=== PATIENT | male | born 1935 | race Caucasian/White ===

== ENCOUNTER 2019-12-21 05:28 | Day surgery (SDC) | payer MEDICARE, OTHER ==
--- NOTE | 2019-12-16 11:27 | RADIOLOGY REPORT (SQ) ---
EXAM DESCRIPTION: CHEST PA/LATERAL IMAGES COMPLETED DATE/TIME: 12/16/2019 10:48 am REASON FOR STUDY: PRE-OP COMPARISON: None. EXAM PARAMETERS: NUMBER OF VIEWS: two views TECHNIQUE: Digital Frontal and Lateral radiographic views of the chest acquired. RADIATION DOSE: NA LIMITATIONS: none FINDINGS: LUNGS AND PLEURA: No opacities, masses or pneumothorax. No pleural effusion. MEDIASTINUM AND HILAR STRUCTURES: No masses or contour abnormalities. HEART AND VASCULAR STRUCTURES: Heart normal size. No evidence for failure. BONES: No acute findings. HARDWARE: None in the chest. OTHER: No other significant finding. IMPRESSION: NO SIGNIFICANT RADIOGRAPHIC FINDING IN THE CHEST. TECHNICAL DOCUMENTATION: JOB ID: [id number] 2010 [employer]- All Rights Reserved Reading location - IP/workstation name: [email or web address]
[2019-12-16 11:33] LABS: HEMATOCRIT 40.6 % (37.9-51.0); HEMOGLOBIN 13.9 g/dL (13.5-17.0); MEAN CORPUSCULAR HEMOGLOBIN 33.2 pg (27.0-33.4); MEAN CORPUSCULAR HGB CONC 34.3 g/dL (32.0-36.0); MEAN CORPUSCULAR VOLUME 97 fl (80-97); PLATELET COUNT 164 10^3/uL (150-450); RED BLOOD COUNT 4.21 10^6/uL (4.35-5.55); RED CELL DISTRIBUTION WIDTH 12.7 % (11.5-14.0); WHITE BLOOD COUNT 4.7 10^3/uL (4.0-10.5)
[2019-12-16 11:38] LABS: APPEARANCE,URINE CLEAR; BILIRUBIN,URINE NEGATIVE (NEGATIVE); COLOR,URINE YELLOW; GLUCOSE, URINE NEGATIVE (NEGATIVE); KETONES,URINE TRACE mg/dL (NEGATIVE); LEUKOCYTE ESTERASE,URINE NEGATIVE (NEGATIVE); NITRITE,URINE NEGATIVE (NEGATIVE); PROTEIN,URINE NEGATIVE (NEGATIVE); URINE SPECIFIC GRAVITY 1.012; UROBILINOGEN,URINE NEGATIVE mg/dL (<2.0)
[2019-12-16 11:59] LABS: ANION GAP 6 (5-19); BLOOD UREA NITROGEN 21 mg/dL (7-20); CALCIUM 9.7 mg/dL (8.4-10.2); CARBON DIOXIDE 26 mmol/L (22-30); CHLORIDE 105 mmol/L (98-107); GLUCOSE 89 mg/dL (75-110); POTASSIUM 4.5 mmol/L (3.6-5.0)
--- NOTE | 2019-12-16 16:40 | EKG REPORT ---
SEVERITY:- ABNORMAL ECG - ATRIAL FIBRILLATION LOW VOLTAGE IN FRONTAL LEADS : Confirmed by: Ramin Burks MD 16-Dec-2019 16:39:25
[~2019-12-21 05:28] MED LIST: CEFAZOLIN INJ 1 GM VIAL IV PRN; CLINDAMYCIN 900 MG/D5W RTU 900 MG/50 ML RTUPB IV ONE; CLINDAMYCIN 900 MG/D5W RTU 900 MG/50 ML RTUPB IV PRN; LACTATED RINGERS 1000 ML IV PRN; LIDOCAINE 0.5% INJ-PF (5 MG/ML) 50 ML SDV SUBCUT PRN
[2019-12-21 06:10] LABS: INTERNATIONAL RATION (INR) 1.05; PROTHROMBIN TIME 13.9 SEC (11.4-15.4)
[2019-12-21 06:11] LABS: PARTIAL THROMBOPLASTIN TIME 27.8 SEC (23.5-35.8)
[2019-12-21] MEDS ORDERED: MIDAZOLAM 2 MG/2 ML INJ ONE (07:07)
[2019-12-21] MEDS ORDERED: ONDANSETRON HCL INJ/PF 4 MG/2 ML SDV ONE (07:07)
[2019-12-21] MEDS ORDERED: EPHEDRINE SULFATE INJ 50 MG/1 ML AMPULE ONE (07:07)
[2019-12-21] MEDS ORDERED: FENTANYL CITRATE INJ/PF 100 MCG/2 ML AMPUL ONE (07:07)
[2019-12-21] MEDS ORDERED: THROMBIN (BOVINE) 5000 UNIT EPITAXIS KIT ONE (07:09)
[2019-12-21] MEDS ORDERED: PROPOFOL INJ 200 MG/20 ML VIAL IV ONE ×2 (07:09→07:16)
[2019-12-21] MEDS ORDERED: BACITRACIN INJ 50,000 UNIT VIAL ONE (07:09)
[2019-12-21] MEDS ORDERED: RINGERS SOLUTION,LACTATED 1,000 ML IV PRN (07:38)
[2019-12-21] MEDS ORDERED: HYDROCOD/ACETAMIN 7.5-325 MG/15 ML ORAL SOLN UDCUP PO PRN (07:38)
[2019-12-21] MEDS ORDERED: MAGNESIUM HYDROXIDE SUSP 30 ML UDCUP PO PRN (07:38)
[2019-12-21] MEDS ORDERED: DIPHENHYDRAMINE HCL 25 MG CAPSULE PO PRN (07:38)
[2019-12-21] MEDS ORDERED: ACETAMINOPHEN 650 MG SUPP.RECT PR PRN (07:38)
[2019-12-21] MEDS ORDERED: METHOCARBAMOL 750 MG TABLET PO PRN (07:38)
[2019-12-21] MEDS ORDERED: ACETAMINOPHEN SOLN 325 MG/10.15 ML UDCUP PO PRN ×2 (07:38)
[2019-12-21] MEDS ORDERED: PROMETHAZINE HCL INJ 25 MG/1 ML VIAL IM PRN (07:38)
[2019-12-21] MEDS ORDERED: PROMETHAZINE HCL 25 MG TABLET PO PRN (07:38)
[2019-12-21] MEDS ORDERED: DIPHENHYDRAMINE HCL 50 MG/ML VIAL IV PRN ×2 (07:38→08:30)
[2019-12-21] MEDS ORDERED: PSYLLIUM HUSK 0.52 GM PO PRN (07:50)
[2019-12-21] MEDS ORDERED: DEXMEDETOMIDINE INJ 80 MCG/20 ML VIAL IV ONE (07:59)
[2019-12-21] MEDS ORDERED: (PENDING PHARMACY ID) (Terazosin Hcl [Terazosin Hcl] 10 MG) PO SCH (08:00)
[2019-12-21] MEDS ORDERED: MORPHINE SULFATE 10 MG/ML INJ IV PRN (08:30)
[2019-12-21] MEDS ORDERED: ONDANSETRON HCL INJ/PF 4 MG/2 ML SDV IV PRN (08:30)
[2019-12-21] MEDS ORDERED: MEPERIDINE HCL/PF INJ 25 MG/1 ML DISP.SYRIN IV PRN (08:30)
[2019-12-21] MEDS ORDERED: OXYCODONE-ACETAMINOPHEN 5-325 MG TABLET PO PRN ×2 (08:30)
[2019-12-21] MEDS ORDERED: FENTANYL CITRATE INJ/PF 100 MCG/2 ML AMPUL IV PRN ×3 (08:30)
[2019-12-21] MEDS ORDERED: PROMETHAZINE HCL INJ 25 MG/1 ML VIAL IV PRN ×2 (08:30)
--- NOTE | 2019-12-21 10:06 | Operative Report ---
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 The patient received 100 mg of clindamycin within 1 hour of cut time. The patient had a Hernandez catheter placed at the beginning of the case and removed at the end of the case. The patient had SCDs and a warming blanket placed as well. The patient is placed on the radiolucent OSI table in the supine position with a bolster between the shoulder blades. After appropriate surgical timeout, the left iliac crest is aspirated 7 cm posterior to the anterior superior iliac spine. A total of 3 cc are aspirated. The skin is marked under lateral C-arm fluoroscopy to emil the appropriate levels. A transverse incision is carried out through the skin and electrocautery was used to maintain hemostasis. The platysma was incised and dissection was carried down through the pretracheal fascia down onto the pre-vertebral fascia. [place] retractors were used to retract mediolaterally and the appropriate disc space is marked with a bent needle and lateral C-arm fluoroscopy is obtained to verify the appropriate levels. Upon verification of the C3-4 level, [place] pin retractors are positioned at C3 and C4 and used to retract cephalad and caudad. The microscope was brought in under the microscope a complete anterior spur rese ction is carried out and complete discectomy endplates are also curetted to good bleeding bone in the posterior longitudinal ligament is resected as well as any posterior osteophytes as well as bilateral foraminotomies are performed. The appropriate size interbody spacer is determined and positioned in interbody space filled with bone marrow aspirate and allograft. Cranial motor testing was then obtained to verify good signals. The appropriate anterior plate is positioned and screws are drilled and screws are placed into C3-C4. The screws are final tightened into the plate. And final cranial motor testing is obtained. Final C arm fluoroscopy is obtained to verify position of the screws and plate. The wound is irrigated with a liter of bacitracin irrigation. A 7 flat Niuean drain is brought in inferior and lateral to the incision placed the negative JUVE pressure. The JVUE drain is sutured to the skin. The platysma was reapproximated with 2-0 Vicryl. The skin is reapproximated with a running subcuticular 3-0 Monocryl stitch. Please note this procedure could not of been done without the assistance of Alex Calhoun physician assistant athletic trainer and working under the microscope and carrying out the discectomy and placing the spacers. Please note that bone marrow aspiration CPT code 82383 utilized for the graft is better choice over structural bone harvesting from the iliac crest which has 20% chronic postoperative iliac crest and hip pain and also aspiration is less expensive. Both techniques have similar fusion rates for one level instrumented fusion with interbody spacer.
[2019-12-21] MEDS ORDERED: METHOCARBAMOL INJ/PF 1000 MG/10 ML SDV ONE (10:09)
--- NOTE | 2019-12-21 12:08 | RADIOLOGY REPORT (SQ) ---
EXAM DESCRIPTION: NO CHG FLUORO; CERV SP 3 VIEW OR LESS IMAGES COMPLETED DATE/TIME: 12/21/2019 10:21 am REASON FOR STUDY: CERVICAL FUSION ASSISTED WITH FLUORO IN OR COMPARISON: None. FLUOROSCOPY TIME: 0.1 minutes 3 Images saved to PACS LIMITATIONS: None. PROCEDURE: ACDF FINDINGS: Images from fluoro document the procedure. An anterior plate is present at C3-4 with a di sc implant. IMPRESSION: ACDF C3-4. Refer to operative note for further information. COMMENT: PQRS 6045F: Fluoroscopy time of the procedure is documented in the report. TECHNICAL DOCUMENTATION: JOB ID: [id number] 2010 [employer]- All Rights Reserved Reading location - IP/workstation name: [email or web address]
--- NOTE | 2019-12-21 12:08 | RADIOLOGY REPORT (SQ) ---
EXAM DESCRIPTION: NO CHG FLUORO; CERV SP 3 VIEW OR LESS IMAGES COMPLETED DATE/TIME: 12/21/2019 10:21 am REASON FOR STUDY: CERVICAL FUSION ASSISTED WITH FLUORO IN OR COMPARISON: None. FLUOROSCOPY TIME: 0.1 minutes 3 Images saved to PACS LIMITATIONS: None. PROCEDURE: ACDF FINDINGS: Images from fluoro document the procedure. An anterior plate is present at C3-4 with a di sc implant. IMPRESSION: ACDF C3-4. Refer to operative note for further information. COMMENT: PQRS 6045F: Fluoroscopy time of the procedure is documented in the report. TECHNICAL DOCUMENTATION: JOB ID: [id number] 2010 [employer]- All Rights Reserved Reading location - IP/workstation name: [email or web address]
[2019-12-21] MEDS ORDERED: PHENOL/SODIUM PHENOLATE 100 SPRAY/177 ML BOTTLE PO PRN (14:00)
[2019-12-21] MEDS ORDERED: MAGNESIUM OXIDE 400 MG TABLET PO SCH (14:00)
[2019-12-21] MEDS ORDERED: FEBUXOSTAT 80 MG TABLET PO SCH (14:00)
[2019-12-21] MEDS: OXYCODONE-ACETAMINOPHEN 5-325 MG TABLET PO PRN ×2 (14:17→18:34)
[2019-12-21] MEDS: CLINDAMYCIN 600 MG/D5W RTU 600 MG/50 ML RTUPB IV SCH ×2 (14:18→21:37)
[2019-12-21] MEDS ORDERED: METHOCARBAMOL 500 MG TABLET PO PRN (14:22)
[2019-12-21] MEDS ORDERED: SUCCINYLCHOLINE CHLORIDE INJ 200 MG/10 ML VIAL ONE (14:29)
[2019-12-21] MEDS ORDERED: DEXAMETHASONE SOD PHOSPHATE INJ 4 MG/1 ML VIAL ONE (14:29)
[2019-12-21] MEDS ORDERED: SENNOSIDES/DOCUSATE 8.6-50 MG 1 EACH TABLET PO SCH (18:00)
[2019-12-21] MEDS ORDERED: PROPRANOLOL HCL 40 MG TABLET PO SCH (20:00)
[2019-12-21] MEDS ORDERED: PROPRANOLOL HCL 60 MG PO SCH (20:00)
[2019-12-21] MEDS ORDERED: (PENDING PHARMACY ID) (Lisinopril [Lisinopril] 20 MG) PO SCH (22:00)
[2019-12-21] MEDS ORDERED: LISINOPRIL 10 MG TABLET PO SCH (22:00)
[2019-12-22] MEDS: OXYCODONE-ACETAMINOPHEN 5-325 MG TABLET PO PRN (02:46)
[2019-12-22 08:21] VITALS: BP 143/68
--- NOTE | 2019-12-22 08:45 | PDOC PROGRESS REPORT ---
Subjective Progress Note for:: 12/22/19 Subjective:: POD 1 ACDF c3-C4 : patient is doing well. c/o mild cough. he is sitting up in a chair at time of visit. He reports he is able to take solid food with no significant pain. Reason For Visit: M50.30 OTHER CERVICAL DISC DEGENERATION, UNSP CERV Physical Exam Vital Signs: Temp Pulse Resp BP Pulse Ox 97.7 F 83 18 143/68 H 99 12/22/19 08:00 12/22/19 08:00 12/22/19 08:00 12/22/19 08:00 12/22/19 08:00 Intake & Output 12/21/19 12/22/19 12/23/19 06:59 06:59 06:59 Intake Total 0 3100 Output Total 2065 Balance 0 1035 Weight 91.17 kg 91.2 kg Physical Exam: Incision clean and dry no signs of drainage noted General appearance: PRESENT: no acute distress, well-developed, well-nourished Head exam: PRESENT: atraumatic, normocephalic Eye exam: PRESENT: conjunctiva pink, EOMI, PERRLA. ABSENT: scleral icterus Ear exam: PRESENT: normal external ear exam Neck exam: PRESENT: full ROM. ABSENT: carotid bruit, JVD, lymphadenopathy, thyromegaly Cardiovascular exam: PRESENT: RRR. ABSENT: diastolic murmur, rubs, systolic murmur Pulses: PRESENT: normal dorsalis pedis pul, +2 pedal pulses bilateral Vascular exam: PRESENT: normal capillary refill GI/Abdominal exam: PRESENT: normal bowel sounds, soft. ABSENT: distended, guarding, mass, organolmegaly, rebound, tenderness Rectal exam: PRESENT: deferred Neurological exam: PRESENT: alert, awake, oriented to person, oriented to place, oriented to time, oriented to situation, CN II-XII grossly intact. ABSENT: motor sensory deficit Psychiatric exam: PRESENT: appropriate affect, normal mood. ABSENT: homicidal ideation, suicidal ideation Skin exam: PRESENT: dry, intact, warm. ABSENT: cyanosis, rash Results Laboratory Results: 12/16/19 10:00 12/21/19 05:44 Impressions: Chest X-Ray 12/16/19 00:00 IMPRESSION: NO SIGNIFICANT RADIOGRAPHIC FINDING IN THE CHEST. Cervical Spine X-Ray 12/21/19 00:00 IMPRESSION: ACDF C3-4. Refer to operative note for further information. Fluoroscopy 12/21/19 00:00 IMPRESSION: ACDF C3-4. Refer to operative note for further information. Assessment & Plan - Time Time Spent with patient: Less than 15 minutes - Plan Summary Plan Summary: Patient doing well Ok to D/C home toady drain pulled today after 15 ml of drainage follow Dr. Brewer post op protocol
[2019-12-22] MEDS ORDERED: ASPIRIN 325 MG TABLET PO SCH (10:00)
[2019-12-23] MEDS ORDERED: BISACODYL 10 MG SUPP.RECT PR PRN (05:00)
[2019-12-23] MEDS ORDERED: BISACODYL 5 MG TABEC PO PRN (05:00)
== END 2019-12-22 10:46 | disposition home or self-care (01) ==
LOC: OROUT 05:28 → 4W 11:52 → OROUT 12-22 10:46
PROVIDERS: ATTEND Orthopaedic Surgery
DX: M48.02 Spinal stenosis, cervical region (principal); M54.12 Radiculopathy, cervical region; G95.9 Disease of spinal cord, unspecified; M50.30 Other cervical disc degeneration, unspecified cervical region; M47.12 Other spondylosis with myelopathy, cervical region; Z79.01 Long term (current) use of anticoagulants; M48.061 Spinal stenosis, lumbar region without neurogenic claudication; M48.00 Spinal stenosis, site unspecified; K21.9 Gastro-esophageal reflux disease without esophagitis; E78.5 Hyperlipidemia, unspecified; G62.9 Polyneuropathy, unspecified; I10 Essential (primary) hypertension; I48.91 Unspecified atrial fibrillation; Z79.899 Other long term (current) drug therapy; Z87.891 Personal history of nicotine dependence; Z03.818 Encounter for observation for suspected exposure to other biological agents ruled out
CPT/HCPCS: 22856; 93005; 36415 ×2; 84132; 85027; 85610; 85730; 80048; 81001; 87070; 72040; 71046; 94799; 93010; 94760; 97530 ×2; 97116; 97162; 97165; 00600; U0003; A9270 ×8; J2250; J3490 ×4; J1100; J3010; J2800; J0330; J2405; J7120; J2704; C9803; 87635

== ENCOUNTER 2019-12-30 09:49 | Inpatient (IN) | payer MEDICARE, OTHER ==
[~2019-12-30 09:49] MED LIST changes: -CEFAZOLIN INJ 1 GM VIAL IV PRN; +DEXAMETHASONE SOD PHOSPHATE INJ 4 MG/1 ML VIAL ONE; +ESMOLOL HCL INJ/PF 100 MG/10 ML SDV IV ONE; +GLYCOPYRROLATE 1 MG/5 ML VIAL ONE; -LACTATED RINGERS 1000 ML IV PRN; -LIDOCAINE 0.5% INJ-PF (5 MG/ML) 50 ML SDV SUBCUT PRN; +NEOSTIGMINE METHYLSULFATE 10 MG/10 ML VIAL ONE; +ONDANSETRON HCL INJ/PF 4 MG/2 ML SDV ONE; +PHENYLEPHRINE HCL INJ/PF 10 MG/1 ML SDV ONE; +ROCURONIUM BROMIDE INJ 50 MG/5 ML VIAL IV ONE
[2019-12-30] MEDS ORDERED: FENTANYL CITRATE INJ/PF 100 MCG/2 ML AMPUL ONE (10:57)
[2019-12-30] MEDS ORDERED: MIDAZOLAM 2 MG/2 ML INJ ONE (10:57)
[2019-12-30] MEDS ORDERED: PROPOFOL INJ 200 MG/20 ML VIAL IV ONE (10:57)
[2019-12-30 11:32] LABS: PROTHROMBIN TIME 14.4 SEC (11.4-15.4)
[2019-12-30 11:33] LABS: PARTIAL THROMBOPLASTIN TIME 26.2 SEC (23.5-35.8)
[2019-12-30] MEDS ORDERED: BACITRACIN INJ 50,000 UNIT VIAL ONE (12:01)
[2019-12-30] MEDS ORDERED: BUPIVACAINE INJ/PF LIPOSOME/PF 266 MG/20 ML SDV ONE (12:01)
[2019-12-30] MEDS ORDERED: BUPIVACAINE HCL 0.25 % INJ/PF (2.5 MG/1 ML) 30 ML VIAL ONE (12:01)
[2019-12-30] MEDS ORDERED: DIPHENHYDRAMINE HCL 50 MG/ML VIAL IV PRN ×2 (13:33→13:46)
[2019-12-30] MEDS ORDERED: PROMETHAZINE HCL INJ 25 MG/1 ML VIAL IV PRN (13:33)
[2019-12-30] MEDS ORDERED: FENTANYL CITRATE INJ/PF 100 MCG/2 ML AMPUL IV PRN ×2 (13:33)
[2019-12-30] MEDS ORDERED: MEPERIDINE HCL/PF INJ 25 MG/1 ML DISP.SYRIN IV PRN (13:33)
[2019-12-30] MEDS ORDERED: NA PHOS,M-B/NA PHOS,DI-BA (ADULT) 133 ML ENEMA PR PRN (13:46)
[2019-12-30] MEDS ORDERED: RINGERS SOLUTION,LACTATED 1,000 ML IV PRN (13:46)
[2019-12-30] MEDS ORDERED: PROMETHAZINE HCL 25 MG TABLET PO PRN (13:46)
[2019-12-30] MEDS ORDERED: METHOCARBAMOL 750 MG TABLET PO PRN (13:46)
[2019-12-30] MEDS ORDERED: ONDANSETRON HCL INJ/PF 4 MG/2 ML SDV IV PRN (13:46)
[2019-12-30] MEDS ORDERED: HYDROCOD/ACETAMIN 7.5-325 MG/15 ML ORAL SOLN UDCUP PO PRN (13:46)
[2019-12-30] MEDS ORDERED: OXYCODONE-ACETAMINOPHEN 5-325 MG TABLET PO PRN (13:46)
[2019-12-30] MEDS ORDERED: PHENOL/SODIUM PHENOLATE 100 SPRAY/177 ML BOTTLE PO PRN (13:46)
[2019-12-30] MEDS ORDERED: ACETAMINOPHEN SOLN 325 MG/10.15 ML UDCUP PO PRN (13:46)
[2019-12-30] MEDS ORDERED: PROMETHAZINE HCL INJ 25 MG/1 ML VIAL IM PRN (13:46)
[2019-12-30] MEDS ORDERED: DIPHENHYDRAMINE HCL 25 MG CAPSULE PO PRN (13:46)
[2019-12-30] MEDS ORDERED: (PENDING PHARMACY ID) (Lisinopril [Lisinopril] 20 MG) PO SCH (14:00)
--- NOTE | 2019-12-30 14:14 | Operative Report ---
Operative Report DATE OF SURGERY: 12/30/19 PREOPERATIVE DIAGNOSIS: Failure of fixation C3-4 and anterior translation of pl ate and interbody spacer POSTOPERATIVE DIAGNOSIS: Failure fixation C3-4 and translation of interbody spacer. Status post removal of interbody spacer and plate and revision di scectomy and placement of new interbody spacer with new anterior plating and screw fixation OPERATION: Removal of C3-4 anterior plate hardware and interbody spacer due to failure of fixation and revision discectomy and anterior interbody spacer placement with allografting and anterior fixation and plate fixation. SURGEON: AIMEE VAZQUEZ 1ST PACKAGING CLERK: DEWEY MONSIVAIS ANESTHESIA: GA TISSUE REMOVED OR ALTERED: Hardware fixation anteriorly removed anterior plate with 4 screws as well as interbody peek spacer removed COMPLICATIONS: None ESTIMATED BLOOD LOSS: 50 cc PROCEDURE: Patient was brought into the room placed under anesthesia received 900 mg of clindamycin with an hour of cut time patient is placed in a neutral position with a foam pillow behind the neck. After appropriate C-arm fluoroscopy in the lateral position the old incision is marked and patient is prepped and draped in usual sterile fashion. After appropriate surgical timeout the incision is opened up and blunt dissection was carried down through the pre-vertebral fascia into the anterior plate exposed there was some fibrinous clot which was resected wound was irrigated with copious amounts of bacitracin irrigation. The microscope was brought in and the screws all 4 screws were removed as well as the anterior plate after removing the locking mechanism. The interbody spacer was then removed and there was noted to be significant clot and fibrinous tissue posteriorly that them under the microscope that was removed completely to decompress and expose the dura again. The appropriate size Titan 16 x 14 x 7 mm degree lordotic spacer filled with the calcium triphosphate and allograft that was in the previous spacer were placed into the interbody spacer position C-arm fluoroscopy was obtained under C-arm fluoroscopy the endplate all is and is used to create a portal into the endplates at C3 and C4 3.8 x 18 mm screw is placed into the C3 vertebral body and a 3.8 x 60 mm screw is placed into the C4 vertebral body found to have good for good fixation then the anterior locking plate is placed anterior to the plate locked into the spacer. Evaluation of the soft tissues noting no epidural bleeders no significant swelling was carried out. The wound was then irrigated with a liter of bacitracin irrigation. The is most reapproximated with 3 interrupted 2-0 Vicryl stitches and the skin with a running subsequent closure with benzoin and Steri-Strips Monocryl was utilized in the subcuticular closure. Wounds are dressed and benzoin Steri-Strips 4 x 4 and tape patient tolerated procedure well condition stable disposition is to recovery room. Please note this procedure cannot be done without the assistance of Alex Solorio in retraction exposure although there were a few adhesions there was no evidence of any soft tissue injury.
[2019-12-30] MEDS ORDERED: HYDROCODONE/ACETAMINOPHEN 10-325 MG TABLET PO PRN (14:59)
--- NOTE | 2019-12-30 15:46 | RADIOLOGY REPORT (SQ) ---
EXAM DESCRIPTION: NO CHG FLUORO; CERV SP 3 VIEW OR LESS IMAGES COMPLETED DATE/TIME: 12/30/2019 2:44 pm REASON FOR STUDY: CERVICAL HARDWARE REMOVAL / REVISION ASSISTED WITH FLUORO IN OR COMPARISON: 12/21/2019 FLUOROSCOPY TIME: 0.2 minutes 3 Images saved to PACS LIMITATIONS: None. PROCEDURE: Hardware revision FINDINGS: Images from fluoro document the procedure. IMPRESSION: Hardware revision. Refer to operative note for further information. COMMENT: PQRS 6045F: Fluoroscopy time of the procedure is documented in the report. TECHNICAL DOCUMENTATION: JOB ID: [id number] 2010 [employer]- All Rights Reserved Reading location - IP/workstation name: [email or web address]
--- NOTE | 2019-12-30 15:46 | RADIOLOGY REPORT (SQ) ---
EXAM DESCRIPTION: NO CHG FLUORO; CERV SP 3 VIEW OR LESS IMAGES COMPLETED DATE/TIME: 12/30/2019 2:44 pm REASON FOR STUDY: CERVICAL HARDWARE REMOVAL / REVISION ASSISTED WITH FLUORO IN OR COMPARISON: 12/21/2019 FLUOROSCOPY TIME: 0.2 minutes 3 Images saved to PACS LIMITATIONS: None. PROCEDURE: Hardware revision FINDINGS: Images from fluoro document the procedure. IMPRESSION: Hardware revision. Refer to operative note for further information. COMMENT: PQRS 6045F: Fluoroscopy time of the procedure is documented in the report. TECHNICAL DOCUMENTATION: JOB ID: [id number] 2010 [employer]- All Rights Reserved Reading location - IP/workstation name: [email or web address]
[2019-12-30] MEDS: ACETAMINOPHEN SOLN 325 MG/10.15 ML UDCUP PO SCH (17:59)
[2019-12-30] MEDS ORDERED: SENNOSIDES/DOCUSATE 8.6-50 MG 1 EACH TABLET PO SCH (18:00)
[2019-12-30] MEDS ORDERED: PROPRANOLOL HCL 60 MG PO SCH (18:00)
[2019-12-30] MEDS ORDERED: FAMOTIDINE 20 MG TABLET PO SCH (18:00)
[2019-12-30] MEDS ORDERED: PROPRANOLOL HCL 20 MG TABLET PO SCH (18:00)
[2019-12-30] MEDS: DOXAZOSIN MESYLATE 4 MG TABLET PO SCH (21:14)
[2019-12-30] MEDS: LISINOPRIL 10 MG TABLET PO SCH (21:14)
[2019-12-30] MEDS ORDERED: CLINDAMYCIN 600 MG/D5W RTU 600 MG/50 ML RTUPB IV SCH (22:00)
[2019-12-31] MEDS: ACETAMINOPHEN SOLN 325 MG/10.15 ML UDCUP PO SCH ×2 (01:57→09:51)
--- NOTE | 2019-12-31 08:39 | PDOC PROGRESS REPORT ---
Subjective Progress Note for:: 12/31/19 Subjective:: Patient doing well this morning. Eating food on exam. Able to drink through a straw but reports difficulty swallowing anything that is not pured. Also reports frequency with urination. Otherwise has no events overnight. Reason For Visit: T84.418A BRKDWN INTERNAL ORTH DEVICES, IMPLANTS AN Physical Exam Vital Signs: Temp Pulse Resp BP Pulse Ox 97.5 F 91 20 144/71 H 96 12/31/19 07:59 12/31/19 07:59 12/31/19 07:59 12/31/19 07:59 12/31/19 07:59 Intake & Output 12/30/19 12/31/19 01/01/20 06:59 06:59 06:59 Intake Total 1830 Output Total 975 Balance 855 Weight 93.44 kg 90.9 kg Physical Exam: No acute distress, alert and oriented x3 Wound clean dry and intact Bilateral upper extremities neurovascular intact Appropriate functioning of bilateral upper extremities and bilateral lower extremities. Able to help himself to breakfast without limitation Results Laboratory Results: 12/30/19 11:14 12/30/19 11:14 Potassium Cancelled Impressions: Cervical Spine X-Ray 12/30/19 00:00 IMPRESSION: Hardware revision. Refer to operative note for further information. Fluoroscopy 12/30/19 00:00 IMPRESSION: Hardware revision. Refer to operative note for further information. Assessment & Plan - Diagnosis (1) S/P cervical spinal fusion Is this a current diagnosis for this admission?: Yes Plan: -Patient may be discharged today pending physical therapy evaluation and discussion with family -Continue postoperative antibiotics -Weightbearing as tolerated, encourage ambulation -Physical therapy occupational therapy -Follow-up with Dr. Anders and follow discharge instructions as written. - Time Time Spent with patient: Less than 15 minutes
[2019-12-31] MEDS: LISINOPRIL 10 MG TABLET PO SCH (09:52)
[2019-12-31] MEDS: DOXAZOSIN MESYLATE 4 MG TABLET PO SCH (09:52)
[2019-12-31] MEDS ORDERED: ASPIRIN 325 MG TABLET PO SCH (10:00)
[2019-12-31] MEDS ORDERED: MAGNESIUM OXIDE 400 MG TABLET PO SCH (10:00)
[2019-12-31] MEDS ORDERED: FEBUXOSTAT 80 MG TABLET PO SCH (10:00)
[2019-12-31] MEDS ORDERED: POLYETHYLENE GLYCOL 3350 POWDER 17 GM/1 PACKET PO SCH ×2 (10:00→11:00)
[2019-12-31] MEDS ORDERED: (PENDING PHARMACY ID) (Terazosin Hcl [Terazosin Hcl] 10 MG) PO SCH (10:00)
[2019-12-31 14:52] VITALS: BP 135/64
[2020-01-01] MEDS ORDERED: BISACODYL 5 MG TABEC PO PRN (05:00)
[2020-01-01] MEDS ORDERED: BISACODYL 10 MG SUPP.RECT PR PRN (05:00)
[2020-01-01] MEDS ORDERED: POLYETHYLENE GLYCOL 3350 POWDER 17 GM/1 PACKET PO SCH (10:00)
== END 2019-12-31 15:35 | disposition home health service (06) | DRG 517 ==
LOC: INOR 09:49 → EDSTATUS 12:00 → 4N 15:08
PROVIDERS: ADMIT Orthopaedic Surgery; ATTEND Orthopaedic Surgery
PROC: 0RW Upper Joints, Revision (ICD-10-PCS; 2019-12-30)
PROC: 0RW104Z Revision of Internal Fixation Device in Cervical Vertebral Joint, Open Approach (ICD-10-PCS; 2019-12-30)
PROC: 0RP10AZ Removal of Interbody Fusion Device from Cervical Vertebral Joint, Open Approach (ICD-10-PCS; principal; 2019-12-30 12:00)
DX: T84.216A Breakdown (mechanical) of internal fixation device of vertebrae, initial encounter (principal); M48.02 Spinal stenosis, cervical region; Z98.1 Arthrodesis status; Z79.899 Other long term (current) drug therapy; Y83.1 Surgical operation with implant of artificial internal device as the cause of abnormal reaction of the patient, or of later complication, without mention of misadventure at the time of the procedure
CPT/HCPCS: 00600; 36415; 72040; 85610; 85730; C9290; J1100; J2250; J2370; J2405; J2704; J2710; J3010; J3490